=== PATIENT | female | born 1960 | race Caucasian/White ===

== ENCOUNTER 2018-10-14 22:25 | Emergency (ER) | payer BC ==
[~2018-10-14] VITALS: Ht 154.9 cm; Wt 53.1 kg
--- OUTSIDE RECORDS SUMMARY | 2018-10-14 22:28 | XMS REPORT ---
Author Author [facility] Address Unknown Phone Unavailable Care Team Providers Care Procedure Writer Name Role Phone Unavailable Unavailable Payers Payer Name Policy Type Policy Number Effective Date Expiration Date Problems This patient has no known problems. Allergies, Adverse Reactions, Alerts Allergy Name Allergy Type Status Severity Reaction(s) Onset Date Inactive Date Treating Clinician Comments apixaban DA Active SV 2018-01-06 00:00:00 codeine DA Active U 2018-01-01 00:00:00 butorphanol DA Active U 2018-01-01 00:00:00 codeine DA Active U 2017-04-09 00:00:00 pseudoephedrine DA Active U 2017-04-09 00:00:00 butorphanol DA Active U 2017-04-09 00:00:00 Medications This patient has no known medications.
[2018-10-14] MEDS ORDERED: KETOROLAC TROMETHAMINE 60 MG/2 ML VIAL IM ONE (23:15)
[2018-10-14] MEDS: DIAZEPAM 2 MG TAB PO ONE ×2 (23:36→23:41)
[2018-10-14] MEDS ORDERED: DIAZEPAM 2 MG TAB PO ONE (23:45)
--- NOTE | 2018-10-14 23:56 | Diagnostic Imaging Report ---
EXAMINATION: CHEST 2 VIEWS INDICATION: ^BACK PAIN, NON PRODUCTIVE COUGH ^[id number] ^[id number] COMPARISON: None FINDINGS: PA and lateral views TUBES and LINES: None. LUNGS: Lungs are well inflated. Increased right lower lung field hazy opacification. PLEURA: No pleural effusion or pneumothorax. HEART AND MEDIASTINUM: The cardiomediastinal silhouette is unremarkable. BONES AND SOFT TISSUES: No acute osseous lesion. Soft tissues are unremarkable. UPPER ABDOMEN: No free air under the diaphragm. IMPRESSION: Right mid to lower lung field hazy opacification, concerning for developing pneumonia. Signed by: Dr. Aly Paredes MD on 10/14/2018 11:53 PM
--- NOTE | 2018-10-15 00:03 | Diagnostic Imaging Report ---
THORACIC SP 3V - 3 views HISTORY: Pain COMPARISON: None available. FINDINGS: Normal alignment of thoracic spine vertebral bodies. Vertebral body heights are maintained. No soft tissue abnormality. IMPRESSION: No acute radiographic abnormality. Signed by: Dr. Aly Paredes MD on 10/14/2018 11:59 PM
--- NOTE | 2018-10-15 00:05 | Diagnostic Imaging Report ---
Lumbar Spine Radiographs: 5 radiographs HISTORY: Pain COMPARISON: None available. DISCUSSION: Some of the osseous structures are partially obscured by stool and bowel gas. There are five non-rib bearing lumbar vertebral bodies. The alignment of the spine is within normal limits. No displaced fracture or compression deformity is identified. Vertebral body heights are maintained. L5 vertebral body slightly rotated. Severe L5-S1 disc space scarring. L4-L5 and L5-S1 facet arthropathy. IMPRESSION: L5-S1 facet joint changes. There are also lower lumbar spine facet arthropathy. No definite evidence of acute lumbar spine abnormality. If there is high clinical concern, consider obtaining CT or MRI for further evaluation. Signed by: Dr. Aly Paredes MD on 10/15/2018 12:01 AM
[2018-10-15] MEDS ORDERED: CEFTRIAXONE SOD 1 GM/NS 50 ML 50 ML IV ONE (01:15)
[2018-10-15 01:33] LABS: BASOPHILS % 0.4 % (0.0-1.0); EOSINOPHILS # (AUTO) 0.1 (0.0-0.4); EOSINOPHILS % 0.6 % (0.0-6.0); HEMATOCRIT 37.8 % (34.2-44.1); HEMOGLOBIN 12.1 g/dL (12.0-16.0); LYMPHOCYTES # (AUTO) 2.5 (1.0-3.2); MEAN CORPUSCULAR HEMOGLOBIN 30.3 pg (28-32); MEAN CORPUSCULAR VOLUME 94.7 fL (81-99); MONOCYTES # (AUTO) 0.7 (0.2-0.8); MONOCYTES % 8.7 % (4.4-11.3); NEUTROPHILS # (AUTO) 4.4 (2.1-6.9); PLATELET COUNT 334 x10e3/uL (140-360); RED BLOOD COUNT 3.99 x10e6/uL (3.6-5.1); RED CELL DISTRIBUTION WIDTH 11.9 % (11.7-14.4)
[2018-10-15 01:57] LABS: ALANINE AMINOTRANSFERASE 9 IU/L (0-55); ALBUMIN 3.1 g/dL (3.5-5.0); ALBUMIN/GLOBULIN RATIO 0.8 (0.8-2.0); ALKALINE PHOSPHATASE 76 IU/L (40-150); ANION GAP 13.9 mmol/L (8-16); BLOOD UREA NITROGEN 10 mg/dL (7-26); BUN/CREATININE RATIO 14 (6-25); CALCIUM 9.5 mg/dL (8.4-10.2); CARBON DIOXIDE 26 mmol/L (22-29); CHLORIDE 105 mmol/L (98-107); CREATININE, SERUM 0.74 mg/dL (0.57-1.11); EST GLOMERULAR FILTRATION RATE > 60 ML/MIN (60-); GLUCOSE 118 mg/dL (74-118); POTASSIUM 3.9 mmol/L (3.5-5.1); SODIUM 141 mmol/L (136-145)
[2018-10-15] MEDS ORDERED: TRAMADOL HCL 50 MG TAB PO ONE (02:00)
[2018-10-15] MEDS ORDERED: ROBAXIN-750750 MG PO (02:09)
[2018-10-15 02:11] VITALS: BP 128/77
[2018-10-15] MEDS ORDERED: ULTRAM50 MG PO (02:11)
[2018-10-15] MEDS ORDERED: AZITHROMYCIN250 MG PO (02:13)
== END 2018-10-15 02:19 | disposition home or self-care (01) ==
LOC: ER 22:25
DX: M54.5 Low back pain (principal); M54.6 Pain in thoracic spine; J15.9 Unspecified bacterial pneumonia; G89.29 Other chronic pain
CPT/HCPCS: 36415; 71046; 72072; 72110; 80053; 85025; 87040; 99283; J0696; J1885

== ENCOUNTER 2021-01-24 00:07 | Emergency (ER) | payer BC ==
[~2021-01-24] VITALS: Ht 154.9 cm; Wt 53.1 kg
[~2021-01-24 00:07] MED LIST: AZITHROMYCIN250 MG PO; ROBAXIN-750750 MG PO; ULTRAM50 MG PO
[2021-01-24] MEDS ORDERED: ONDANSETRON HCL INJ 2MG/ML 2ML 2 MG/ML VIAL IV STA (00:15)
[2021-01-24] MEDS ORDERED: SODIUM CHLORIDE 0.9% 1000ML 1,000 ML IV STA (00:24)
[2021-01-24 00:41] LABS: BASOPHILS % 0.5 % (0.0-1.0); EOSINOPHILS % 0.5 % (0.0-6.0); HEMATOCRIT 43.6 % (34.2-44.1); HEMOGLOBIN 13.8 g/dL (12.0-16.0); LYMPHOCYTES % 37.3 % (18.0-39.1); MEAN CORPUSCULAR HGB CONC 31.7 g/dL (31-35); MEAN CORPUSCULAR VOLUME 101.2 fL (81-99); MONOCYTES # (AUTO) 0.3 (0.2-0.8); MONOCYTES % 4.3 % (4.4-11.3); NEUTROPHILS # (AUTO) 4.6 (2.1-6.9); PLATELET COUNT 307 x10e3/uL (140-360); RED BLOOD COUNT 4.31 x10e6/uL (3.6-5.1); RED CELL DISTRIBUTION WIDTH 13.1 % (11.7-14.4)
[2021-01-24 00:53] LABS: ALBUMIN 4.3 g/dL (3.5-5.0); ALBUMIN/GLOBULIN RATIO 1.2 (0.8-2.0); ANION GAP 18.1 mmol/L (8-16); CALCIUM 9.1 mg/dL (8.4-10.2); CREATININE, SERUM 0.95 mg/dL (0.57-1.11); POTASSIUM 4.1 mmol/L (3.5-5.1)
[2021-01-24 01:37] LABS: CREATINE KINASE MB 1.1 ng/mL (0-5.0)
[2021-01-24 01:39] LABS: COLOR,URINE STRAW (YELLOW)
[2021-01-24 01:40] LABS: CLARITY,URINE CLEAR (CLEAR); KETONES,URINE NEGATIVE (NEGATIVE); LEUKOCYTE ESTERASE ,URINE NEGATIVE (NEGATIVE); NITRITE,URINE NEGATIVE (NEGATIVE); PROTEIN,URINE DIPSTICK NEGATIVE (NEGATIVE); URINE UROBILINOGEN 0.2 mg/dL (0.2 - 1)
[2021-01-24 01:41] LABS: WBC,URINE (MAN) 0-5 /HPF (0-5)
[2021-01-24 01:42] LABS: BACTERIA,URINE FEW /HPF; EPITHELIAL CELLS,URINE FEW /LPF
[2021-01-24 03:53] VITALS: BP 125/80
== END 2021-01-24 03:25 | disposition home or self-care (01) ==
LOC: ER 00:19
DX: I16.0 Hypertensive urgency (principal); R42 Dizziness and giddiness; I10 Essential (primary) hypertension; E78.5 Hyperlipidemia, unspecified; M54.9 Dorsalgia, unspecified; G89.29 Other chronic pain; Z86.73 Personal history of transient ischemic attack (TIA), and cerebral infarction without residual deficits; Z86.718 Personal history of other venous thrombosis and embolism
CPT/HCPCS: 36415; 70450; 71045; 80053; 81001; 82550; 82553; 83880; 84484; 85025; 93005; 99283; J2405; J7030